=== PATIENT | male | born 1990 | race African-American/Black ===

== ENCOUNTER 2020-05-27 07:22 | Emergency (ER) | payer OTHER ==
[2020-05-27 07:30] VITALS: BP 142/78; PULSE 86; TEMP 99; BMI 38.1
--- NOTE | 2020-05-27 07:33 | PDOC ---
History of Present Illness - General Chief Complaint: Blood Sugar Problem Stated Complaint: HIGH BLOOD SUGAR - History of Present Illness Initial Comments: HPI: 29yo with PMH of HTN, DM presenting with hyperglycemia. Patient reports that he takes metformin for his diabetes, but has not taken it for the past five days because he forgot to bring it on vacation. He checks his blood sugar sporadically and noted it be 220 this morning, while it usually is in the 120s. Patient was concerned with this value and decided to come to the ED. Denies weakness, chest pain, shortness of breath, headache, or confusion. No fevers or chills. PCP: Dr. Lepe ROS: Constitutional: no fever, no chills HEENT: no throat pain, no dysphagia Cardiovascular: no chest pain, no palpitations Respiratory: no cough, no shortness of breath Gastrointestinal: no abdominal pain, no nausea Genitourinary: no dysuria, no hematuria Musculoskeletal: no myalgia, no arthralgia Skin: no rash, no itching Neurologic: no headache, no weakness Psych: no agitation, no anxiety PE: General: Awake, alert, and fully oriented, in no acute distress Head: No signs of trauma Eyes: EOMI, sclera anicteric ENT: Moist mucus membranes Neck: Normal ROM, supple Lungs: Lungs clear, Normal breath sounds Cardio: Regular rhythm, S1 and S2 present Abdomen: Soft, nontender Extremities: Normal range of motion, Distal pulses present Skin: Warm, Dry, normal turgor Neurologic: Cranial nerves II through XII grossly intact. Normal speech ED Course/MDM: DDX including but not limited to hyperglycemia, DKA, HHS Fingerstick is 234 Low suspicion for acidotic process Patient without acute complaints Has enough medication remaining in the bottle he brought with him Utilized motivational interviewing techniques; patient agreeable to taking his medicine everyday To follow up with primary care Return precautions Stable for discharge 05/27/20 07:33 Past History - Medical History Allergies/Adverse Reactions: Allergies Allergy/AdvReac Type Severity Reaction Status Date / Time No Known Allergies Allergy Verified 05/27/20 07:29 - Psycho-Social/Smoking History Smoking History: Never smoked Have you smoked in the past 12 months: No Information on smoking cessation initiated: No - Substance Abuse Hx (Audit-C & DAST Scrn) How often the patient has a drink containing alcohol: Never Score: In Men: 4 or > Positive; In Women: 3 or > Positive: 0 Screen Result (Pos requires Nsg. Audit-10AR): Negative In the last yr the pt used illegal drug/Rx for NonMed reason: No Score: Yes response is considered Positive: 0 Screen Result (Positive result requires Nsg. DAST-10): Negative *Physical Exam - Vital Signs Last Vital Signs Temp Pulse Resp BP Pulse Ox 99.0 F 86 18 142/78 98 05/27/20 07:05/27/20 07:05/27/20 07:05/27/20 07:05/27/20 07:27 Discharge - Discharge Information Problems reviewed: Yes Clinical Impression/Diagnosis: Hyperglycemia Condition: Stable Disposition: HOME - Follow up/Referral Referrals: Judith Lepe MD [Primary Care Provider] - - Patient Discharge Instructions Patient Printed Discharge Instructions: DI for Hyperglycemia -- Adult Additional Instructions: You came into the emergency department after having a high blood sugar level. We performed a comprehensive history and exam and did not find any acute pathology. Continue taking home medications as prescribed by your physician. Follow up with your primary care physician within 72 hours. Call and make an appointment to further evaluate your symptoms. Your workup is not complete until you do so. Immediate medical attention is required if you have: any chest pain, palpitations, shortness of breath, severe headaches, changes in vision, episodes of fainting, focal numbness or weakness, any severe abdominal pain, any black tarry stool, or any new or concerning symptoms. If you think you are having an emergency, call for emergency medical services or present to the emergency department right away. - Post Discharge Activity
--- NOTE | 2020-05-27 07:48 | PDOC ---
Attending Attestation - Resident Resident Name: Alyssa Bonilla - HPI HPI: 06/04/20 19:37 pt presents to the ED complaining of elevated blood sugars at home after a period of non compliance with his diabetic diet and medications. denies complaints. - Physicial Exam PE: 06/04/20 19:37 Agree with resident exam. Patient is alert and oriented and in no acute distress. Abdomen is soft, non tender, non distended without guarding or rebound. - Medical Decision Making 06/04/20 19:39 Pt presents to the ED complaining of elevated blood sugar with no complaints. Blood sugar in the 200s in the ED. Will discharge home with PCP follow up. Discharge - Discharge Information Problems reviewed: Yes Clinical Impression/Diagnosis: Hyperglycemia Condition: Stable Disposition: HOME - Follow up/Referral Referrals: Judith Lepe MD [Primary Care Provider] - - Patient Discharge Instructions Patient Printed Discharge Instructions: DI for Hyperglycemia -- Adult Additional Instructions: You came into the emergency department after having a high blood sugar level. We performed a comprehensive history and exam and did not find any acute pathology. Continue taking home medications as prescribed by your physician. Follow up with your primary care physician within 72 hours. Call and make an appointment to further evaluate your symptoms. Your workup is not complete until you do so. Immediate medical attention is required if you have: any chest pain, palpitations, shortness of breath, severe headaches, changes in vision, episodes of fainting, focal numbness or weakness, any severe abdominal pain, any black tarry stool, or any new or concerning symptoms. If you think you are having an emergency, call for emergency medical services or present to the emergency department right away. - Post Discharge Activity
== END 2020-05-27 08:27 | disposition home or self-care (01) ==
LOC: JER 07:22
DX: R73.9 Hyperglycemia, unspecified (principal)
CPT/HCPCS: 82962; 99282-25

== ENCOUNTER 2020-11-12 22:41 | Emergency (ER) | payer OTHER ==
[2020-11-12 23:09] VITALS: BP 145/83; PULSE 91; TEMP 97.9; BMI 37.7
== END 2020-11-12 23:48 | disposition home or self-care (01) ==
LOC: JER 22:41
DX: T59.91XA Toxic effect of unspecified gases, fumes and vapors, accidental (unintentional), initial encounter (principal); R14.2 Eructation
CPT/HCPCS: 71046-TC-FY; 99283-25

== ENCOUNTER 2021-11-30 07:51 | Emergency (ER) | payer OTHER ==
[2021-11-30 08:29] VITALS: BP 137/87; PULSE 89; TEMP 98.7; BMI 37.5
[2021-11-30] MEDS ORDERED: SODIUM CHLORIDE 1,000 ML IV STA (08:42)
[2021-11-30] MEDS ORDERED: ONDANSETRON 4 MG/2 ML VIAL IVPB ONE (08:58)
[2021-11-30] MEDS ORDERED: ONDANSETRON 4 MG/2 ML VIAL ONE (09:55)
[2021-11-30 10:43] LABS: BASO % 0.4 % (0-2.0); EOS % 2.7 % (0-4.5); HEMATOCRIT 45.1 % (35.4-49); HEMOGLOBIN 14.7 GM/dL (11.7-16.9); LYMPH % 48.3 % (8-40); MCH 27.6 pg (25.7-33.7); MCHC 32.7 g/dl (32.0-35.9); MEAN CELL VOLUME 84.4 fl (80-96); MEAN PLT VOLUME 9.3 fl (7.5-11.1); MONO % 12.3 % (3.8-10.2); NEUT % 36.3 % (42.8-82.8); PLATELET COUNT 207 10^3/uL (134-434); RBC 5.34 M/mm3 (4.00-5.60); RDW 13.4 % (11.9-15.9); WHITE BLOOD COUNT 3.8 K/mm3 (4.0-10.0)
[2021-11-30 10:45] LABS: CALCIUM 9.2 mg/dL (8.5-10.1)
[2021-11-30 10:47] LABS: ALBUMIN 3.8 g/dl (3.4-5.0)
[2021-11-30 10:50] LABS: BILIRUBIN,TOTAL 0.5 mg/dL (0.2-1); TOT PROT 7.8 g/dl (6.4-8.2)
== END 2021-11-30 11:13 | disposition home or self-care (01) ==
LOC: JER 07:51
PROC: 3E033NZ Introduction of Analgesics, Hypnotics, Sedatives into Peripheral Vein, Percutaneous Approach (ICD-10-PCS; principal; 2021-11-30)
PROC: 3E0337Z Introduction of Electrolytic and Water Balance Substance into Peripheral Vein, Percutaneous Approach (ICD-10-PCS; 2021-11-30)
DX: R11.0 Nausea (principal); R19.7 Diarrhea, unspecified
CPT/HCPCS: 36415; 80053; 85025; 99283-25; 99284-25

== ENCOUNTER 2023-05-23 15:11 | Emergency (ER) | payer OTHER ==
[2023-05-23 15:21] VITALS: BP 139/77; PULSE 91; RESP 18; TEMP 98.1; BMI 37.7
[2023-05-23] MEDS ORDERED: IBUPROFEN 600 MG TABLET (FP) PO ONE ×2 (16:08→16:25)
== END 2023-05-23 18:03 | disposition home or self-care (01) ==
LOC: JERFT 15:11
DX: M79.672 Pain in left foot (principal); M25.572 Pain in left ankle and joints of left foot
CPT/HCPCS: 73610-TC-LT-FY; 73630-TC-LT; 99283-25

== ENCOUNTER 2024-02-21 11:18 | Emergency (ER) | payer OTHER ==
[2024-02-21 11:32] VITALS: BP 123/70; PULSE 77; RESP 18; TEMP 97.3; BMI 34.7
[2024-02-21] MEDS ORDERED: KETOROLAC TROMETHAMINE 30 MG/1 ML VIAL ONE (11:55)
[2024-02-21] MEDS: KETOROLAC TROMETHAMINE 15 MG/ML VIAL IM ONE (11:58)
== END 2024-02-21 12:12 | disposition home or self-care (01) ==
LOC: JERFT 11:18
PROC: 3E0233Z Introduction of Anti-inflammatory into Muscle, Percutaneous Approach (ICD-10-PCS; principal; 2024-02-21)
DX: M54.16 Radiculopathy, lumbar region (principal); M54.50 Low back pain, unspecified; M79.672 Pain in left foot; V59.9XXA Occupant (driver) (passenger) of pick-up truck or van injured in unspecified traffic accident, initial encounter; Y93.I9 Activity, other involving external motion; Y92.410 Unspecified street and highway as the place of occurrence of the external cause
CPT/HCPCS: 99284-25